=== PATIENT | female | born 1965 | race Caucasian/White ===

== ENCOUNTER 2018-10-30 10:21 | Outpatient (CLI) | payer OTHER ==
--- NOTE | 2018-10-30 11:58 | RAD ---
2 VIEWS CERVICAL SPINE: Date; 10/30/18 HISTORY: Disability exam. COMPARISON: None available. FINDINGS: C1 to the cervicothoracic junction is seen on the lateral view. There is straightening of the normal cervical lordotic curvature. Multilevel osteophytes are seen and there are facet hypertrophic changes also present at multiple levels. There is slight anterolisthesis of C3 on C4 and C7 on T1, likely re lated to the prominent facet degenerative changes at these levels. The vertebral body heights are wit hin normal limits. No fracture is seen. Linear densities seen in the upper lung zones bilaterally, pr obably related to areas of mild scarring. Vascular calcifications seen thoracic aorta. IMPRESSION: 1. Multilevel degenerative changes throughout the cervical spine with slight anterolisthesis of C3 o n C4 and C7 on T1 likely attributable to prominent facet degenerative changes. 2. Straightening of the normal cervical lordotic curvature, probably related to muscle spasm or posi tioning. POS: [facility]
--- NOTE | 2018-10-30 11:59 | RAD ---
RIGHT HIP 2 VIEWS: Date: 10/30/18 PROVIDED CLINICAL HISTORY: Right hip pain. FINDINGS: There is marked concentric right hip joint space loss with prominent periarticular osteophyte formati on. There is no evidence for fracture or other acute osseous abnormality. The degenerative changes in volving the right hip may predispose to femoral-acetabular impingement. No lytic or blastic lesions a re seen. Partially visualized lower lumbar degenerative change. IMPRESSION: Advanced right hip degenerative change. POS: [facility]
== END 2018-10-30 10:22 | disposition home or self-care (01) ==
LOC: BICRAD 10:21
PROVIDERS: ATTEND Internal Medicine
DX: Z02.71 Encounter for disability determination (principal); M16.11 Unilateral primary osteoarthritis, right hip; M47.812 Spondylosis without myelopathy or radiculopathy, cervical region; M43.12 Spondylolisthesis, cervical region; M47.813 Spondylosis without myelopathy or radiculopathy, cervicothoracic region
CPT/HCPCS: 72040

== ENCOUNTER 2018-11-24 16:30 | Emergency (ER) | payer SELFPAY ==
--- NOTE | 2018-11-24 16:57 | RAD ---
FRadiograph right foot 3 views: HISTORY: 53-year-old female with right foot pain FINDINGS: There is diffuse soft tissue edema of the foot, especially along the medial aspect of the first MTP j oint, adjacent to which there is a subtle ill-defined region of slightly increased soft tissue attenu ation. Bony hypertrophy and irregularity of the medial aspect of first metatarsal head. Numerous subc hondral cysts at the first metatarsal head especially medially. Small osteophytes and mild hallux lizzeth bee at first MTP. High-grade DJD at the third DIP. High-grade DJD at second and third TMT's and to a lesser degree first TMT. No acute fracture. IMPRESSION: 1. No evidence of fracture. 2. Diffuse soft tissue edema. 3. High-grade osteoarthrosis at several tarsometatarsal joints and third distal interphalangeal joint . 4. Moderate osteoarthrosis at the first metatarsophalangeal joint. 5. Possibility of gout at the first metatarsophalangeal joint. Clinical correlation recommended.
[2018-11-24] MEDS ORDERED: Ketorolac Tromethamine 30 MG/ML VIAL ONE (17:29)
[2018-11-24 17:44] LABS: #Lymphocytes 1.2 thou/uL (1.20-3.40); #Monocytes 0.5 thou/uL (0.11-0.59); #Neutrophils 7.5 thou/uL (1.40-6.50); %Basophils 0.5 % (0.0-1.0); %Eosinophils 0.3 % (0.0-10.0); %Lymphocytes 12.8 % (21.0-51.0); %Monocytes 5.2 % (0.0-10.0); %Neutrophils 81.2 % (42.0-75.0); Hemoglobin 13.5 g/dL (12.0-16.0); Mean Corpuscular HGB CONC 33.2 g/dL (32.0-36.0); Mean Corpuscular Hemoglobin 29.3 pg (27.0-31.0); Mean Corpuscular Volume 88.4 fL (78.0-98.0); Mean Platelet Volume 9.7 fL (7.4-10.4); Platelet Count 318 thou/uL (130-400); RBC Distribution Width 11.4 % (11.5-14.5); Red Blood Cell (RBC) Count 4.61 mill/uL (4.20-5.40); White Blood Cell (WBC) Count 9.2 thou/uL (4.8-10.8)
[2018-11-24 18:06] LABS: CRP (Inflammatory) 5.42 mg/dL (= or < 0.5); Uric Acid 8.4 mg/dL (2.6-6.0)
[2018-11-24 18:07] LABS: ALT (SGPT) 11 U/L (8-55); AST (SGOT) 12 U/L (5-34); Albumin 4.5 g/dL (3.5-5.0); Alkaline Phosphatase 117 U/L (40-150); Anion Gap 16 mmol/L (10-20); BUN (Urea Nitrogen) 11 mg/dL (9.8-20.1); Bilirubin, Total 0.7 mg/dL (0.2-1.2); Calc. Creatinine Clearance 0 mL/min (70-130); Calcium 11.1 mg/dL (7.8-10.44); Carbon Dioxide 25 mmol/L (22-29); Chloride 104 mmol/L (98-107); Estimated GFR-MDRD 74; Globulin 3.7 g/dL (2.4-3.5); Glucose 117 mg/dL (70-105); Potassium 4.5 mmol/L (3.5-5.1); Protein, Total 8.2 g/dL (6.0-8.3); Sodium 140 mmol/L (136-145)
[2018-11-24] MEDS ORDERED: cefTRIAXone\\ROCEPHIN 1 GM VIAL ONE (18:52)
--- NOTE | 2018-11-24 18:57 | ULT ---
FEXAM: Right lower extremity venous duplex: Deep veins evaluated with color Doppler, spectral analysis, and compression. INDICATIONS: Right lower extremity pain and edema. FINDINGS: Deep veins interrogated include common femoral vein, femoral vein, popliteal vein, and post erior tibial vein. These veins show normal compression and blood flow. No evidence of DVT. IMPRESSION: Negative right lower extremity venous duplex study
== END 2018-11-24 19:57 | disposition home or self-care (01) ==
LOC: ERS 16:30
DX: L03.115 Cellulitis of right lower limb (principal); M10.9 Gout, unspecified
CPT/HCPCS: 36415; 80053; 84550; 85025; 85652; 86140; 87040; 96365; 96375; J0696; J1885

== ENCOUNTER 2018-12-09 15:00 | Observation (INO) | payer SELFPAY ==
[2018-12-09] MEDS ORDERED: Morphine 4 MG/ML VIAL ONE ×2 (15:33→17:46)
[2018-12-09] MEDS ORDERED: Ondansetron PF 4 MG/2 ML Vial ONE (15:33)
[2018-12-09 15:55] LABS: #Lymphocytes 1.3 thou/uL (1.20-3.40); #Monocytes 0.5 thou/uL (0.11-0.59); #Neutrophils 6.6 thou/uL (1.40-6.50); %Basophils 0.4 % (0.0-1.0); %Eosinophils 0.3 % (0.0-10.0); %Monocytes 6.3 % (0.0-10.0); %Neutrophils 77.9 % (42.0-75.0); Mean Corpuscular HGB CONC 33.7 g/dL (32.0-36.0); Mean Corpuscular Hemoglobin 29.9 pg (27.0-31.0); Mean Corpuscular Volume 88.5 fL (78.0-98.0); Mean Platelet Volume 9.3 fL (7.4-10.4); Platelet Count 327 thou/uL (130-400); RBC Distribution Width 11.2 % (11.5-14.5); Red Blood Cell (RBC) Count 4.35 mill/uL (4.20-5.40); White Blood Cell (WBC) Count 8.5 thou/uL (4.8-10.8)
[2018-12-09 16:14] LABS: ALT (SGPT) 10 U/L (8-55); AST (SGOT) 11 U/L (5-34); Albumin 4.1 g/dL (3.5-5.0); Alkaline Phosphatase 119 U/L (40-150); Anion Gap 15 mmol/L (10-20); BUN (Urea Nitrogen) 12 mg/dL (9.8-20.1); Bilirubin, Total 0.4 mg/dL (0.2-1.2); CRP (Inflammatory) 2.72 mg/dL (= or < 0.5); Calc. Creatinine Clearance 0 mL/min (70-130); Calcium 10.6 mg/dL (7.8-10.44); Carbon Dioxide 28 mmol/L (22-29); Chloride 104 mmol/L (98-107); Estimated GFR-MDRD 55; Globulin 3.2 g/dL (2.4-3.5); Glucose 151 mg/dL (70-105); Potassium 4.8 mmol/L (3.5-5.1); Protein, Total 7.3 g/dL (6.0-8.3); Sodium 142 mmol/L (136-145)
[2018-12-09] MEDS ORDERED: Diazepam 5 MG TAB ONE (16:15)
[2018-12-09] MEDS ORDERED: Lidocaine 1% (PF) 30 ML VIAL ONE (16:57)
[2018-12-09] MEDS ORDERED: Lidocaine 2% 10 ML INJ ONE (16:57)
--- NOTE | 2018-12-09 19:00 | RAD ---
Right foot 3 views HISTORY: Right foot pain and inflammation. COMPARISON: 11/24/2018. FINDINGS: Prominent soft tissue swelling about the first metatarsophalangeal joint has progressed sin ce the previous study. Lucency involving the medial aspect of the first metatarsal head has also worsened with loss of overlying cortex. Subtle erosion at the medial base of the proximal phalanx. Shruthi int space narrowing. Degenerative changes throughout the remainder of the foot are again demonstrated. Subtle erosive barrett ges on each side of the second through fourth tarsometatarsal joints are apparent. IMPRESSION: Rapid progression of erosions and lucency involving the first metatarsophalangeal joint w ith worsening of adjacent soft tissue swelling. An aggressive process such as inflammatory arthropathy (gout) is of primary concern. Infection could have this appearance. Correlation with clin ical findings is required.
[2018-12-09] MEDS ORDERED: Senokot S 8.6-50 MG TAB PO PRN (20:45)
[2018-12-09] MEDS ORDERED: cloNIDine 0.1 MG TAB PO PRN (20:45)
[2018-12-09] MEDS ORDERED: Bisacodyl 5 MG TAB PO PRN (20:45)
[2018-12-09] MEDS ORDERED: Ondansetron PF 4 MG/2 ML Vial IVP PRN (20:45)
[2018-12-09] MEDS ORDERED: Nitroglycerin 0.4 MG TAB (25 Tab Bottle) SL PRN (20:45)
[2018-12-09] MEDS ORDERED: Sodium Chloride 0.65% Nasal 44 ML BOT EA NARE PRN (20:45)
[2018-12-09] MEDS ORDERED: hydrALAZINE 20 MG/ML VIAL SLOW IVP PRN (20:45)
[2018-12-09] MEDS ORDERED: Benzonatate 100 MG CAP PO PRN (20:45)
[2018-12-09] MEDS ORDERED: Calcium Carbonate 500 MG ChewTAB PO PRN (20:45)
[2018-12-09] MEDS ORDERED: Acetaminophen 325 MG TAB PO PRN (20:45)
[2018-12-09] MEDS ORDERED: predniSONE 20 MG TAB PO SCH (21:00)
--- NOTE | 2018-12-09 22:06 | HP ---
PRIMARY CARE PHYSICIAN: Kodi Grafton. CHIEF COMPLAINT: Worsening pain, swelling and redness of the right big toe. HISTORY OF PRESENTING ILLNESS: Ms. Lugo is a 53-year-old very pleasant female with past medical history significant for just gout once in the past as well as history of left hip replacement, who presented to the emergency room with above-mentioned complaint. History is mainly obtained by the patient herself and electronic medical records have been reviewed. The patient was first seen in the emergency room 10 days ago with complaints of right foot pain. At that time, she was hemodynamically stable and was discharged from the emergency room. At that time, she was diagnosed with possible gout, but was given antibiotics with possible rule out cellulitis. The patient returns to the emergency room today. She was reportedly also provided treatment for colchicine and indomethacin. The patient returned to the emergency room today when her symptoms did not resolve. She now has worsening of her right toe pain. The swelling is worse and it is extremely red. She has her whole foot swollen now and is not able to put any weight on it or not able to walk. She denies any constitutional symptoms like fever, chills, nausea, vomiting, or weight loss. She has history of gout once in the other big toe of the other foot, but other than that she is otherwise fairly healthy. In the emergency room today, she was once again hemodynamically stable, but still tachycardic with a pulse of 132. She underwent an x-ray of the foot which showed bony erosion and lucency involving the first metatarsophalangeal joints with ages and worsening of the soft tissue swelling in the right first toe. This was not there in the x-ray done of the right foot on 11/24/2018. She was given some pain medications and underwent an arthrocentesis by the ER physician. The fluid has been sent for culture, cell count. We will add crystal ID to the fluid as well. PAST MEDICAL HISTORY: No significant past medical history as per the patient, except for gout once. She says that her left foot was affected at that time. PAST SURGICAL HISTORY: Tubal ligation and left hip replacement. PSYCHIATRIC HISTORY: No anxiety. No depression. SOCIAL HISTORY: She is engaged and just moved into the town with her fiance. No history of drug, tobacco, or alcohol abuse. FAMILY HISTORY: Significant for multiple family members including her mother and aunt with breast cancer and grandmother with possible ovarian cancer. Her mother also had diabetes. No history of coronary artery disease or stroke. ALLERGIES: NO KNOWN MEDICATION ALLERGIES. CURRENT MEDICATIONS: None. REVIEW OF SYSTEMS: A 14-point review of system is done and is negative except for those mentioned in the history and physical. LABORATORY STUDIES: CBC is unremarkable. Neutrophils 77%. ESR 27. Serum chemistry shows CRP is slightly elevated to 2.72, calcium is 10.6, blood sugar 151. X-ray of the foot by my review as per the HPI. PHYSICAL EXAMINATION: VITAL SIGNS: Upon presentation to the emergency room, blood pressure 143/87, pulse of 95, respirations 19, temperature 99, saturation 99% on room air. GENERAL: No acute distress. Awake, alert, and oriented x3. HEENT: Mucous membrane is moist and pink. No oropharyngeal exudate or erythema. Head is normocephalic and atraumatic. Pupils are equal and reactive to light and accommodation. Extraocular movement intact. NECK: Supple without any lymphadenopathy, JVD, or bruit. CHEST: Clear to auscultation without any wheezing, rales, or rhonchi. HEART: Rate and rhythm are regular without any murmurs, rubs, or gallops. ABDOMEN: Soft, nontender, nondistended. Positive bowel sounds. EXTREMITIES: Examination show extensive erythema, swelling, and warmth of the right first metatarsophalangeal joint involving the dorsum as well as plantar surface. Her whole foot is swollen. There is no streaking. Left foot examination is within normal limits. PSYCHIATRIC: Normal affect. IMPRESSION AND PLAN: 1. Acute gout flare up. The patient will be treated with colchicine and naproxen for now. Avoid steroids as at this time, we cannot rule out infection in the joint either. Orthopedics will be consulted in the morning and we will also obtain a right foot MRI. We will send for uric acid in the blood and crystal analysis for the synovial fluid stat by the ER physician. Pain control will be provided. At this time, no antibiotics were given in the emergency room and we will try not to treat her with antibiotics. If there is no response, further gout treatment antibiotics can be provided empirically until infection is ruled out. At this time, the possibility of a septic arthritis or osteomyelitis are rather low. Skin findings are also consistent with acute gout flare up rather than cellulitis. 2. Hyperglycemia. She has family history of diabetes mellitus. We will check hemoglobin A1c. 3. Family history of multiple first-degree relatives with breast cancer. The patient will undergo mammogram while she is here for screening purposes and will follow up at either [facility] or [facility] for followup with genetic testing and mammograms. 1. Deep venous thrombosis and gastrointestinal prophylaxis. DISPOSITION: Ms. Lugo is currently being admitted on medical floor for acute gout flare up with rule out septic arthritis and osteomyelitis. She is on observation status for now. Further management will depend upon her clinical course. Job ID: [id number]
[2018-12-09 23:25] VITALS: BMI 32.3
[2018-12-09] MEDS: Colchicine 0.6 MG TAB PO SCH (23:34)
[2018-12-09] MEDS: Naproxen 500 MG TAB PO SCH (23:34)
[2018-12-09] MEDS: Sodium Chloride 0.9% 1,000 ML IV SCH (23:35)
[2018-12-10] MEDS: HYDROcodone/Acetaminophen 5/325 mg Tablet PO PRN ×2 (01:40→12:08)
[2018-12-10 06:47] LABS: Anion Gap 11 mmol/L (10-20); BUN (Urea Nitrogen) 11 mg/dL (9.8-20.1); Calc. Creatinine Clearance 101 mL/min (70-130); Calcium 10.2 mg/dL (7.8-10.44); Carbon Dioxide 26 mmol/L (22-29); Chloride 105 mmol/L (98-107); Estimated GFR-MDRD 71; Glucose 150 mg/dL (70-105); Potassium 4.9 mmol/L (3.5-5.1); Sodium 137 mmol/L (136-145)
[2018-12-10 07:13] LABS: Hemoglobin A1c 5.1 % (4.0-6.0)
[2018-12-10] MEDS ORDERED: predniSONE 20 MG TAB PO SCH (08:00)
[2018-12-10 08:51] LABS: #Lymphocytes 0.8 thou/uL (1.20-3.40); #Monocytes 0.2 thou/uL (0.11-0.59); #Neutrophils 6.1 thou/uL (1.40-6.50); %Basophils 0.2 % (0.0-1.0); %Eosinophils 0.2 % (0.0-10.0); %Lymphocytes 10.6 % (21.0-51.0); %Neutrophils 85.9 % (42.0-75.0); Hemoglobin 11.6 g/dL (12.0-16.0); Mean Corpuscular HGB CONC 33.6 g/dL (32.0-36.0); Mean Corpuscular Hemoglobin 29.9 pg (27.0-31.0); Mean Corpuscular Volume 88.9 fL (78.0-98.0); Mean Platelet Volume 10.1 fL (7.4-10.4); Platelet Count 279 thou/uL (130-400); RBC Distribution Width 11.3 % (11.5-14.5); Red Blood Cell (RBC) Count 3.89 mill/uL (4.20-5.40); White Blood Cell (WBC) Count 7.1 thou/uL (4.8-10.8)
[2018-12-10] MEDS: Colchicine 0.6 MG TAB PO SCH ×2 (08:59→15:45)
[2018-12-10] MEDS ORDERED: Enoxaparin Sodium 40 MG/0.4 ML SYRINGE SC SCH (09:00)
[2018-12-10] MEDS: Naproxen 500 MG TAB PO SCH ×2 (09:35→15:44)
[2018-12-10] MEDS: Sodium Chloride 0.9% 1,000 ML IV SCH (11:00)
--- NOTE | 2018-12-10 13:11 | DIS ---
DATE OF ADMISSION: 12/09/2018 DATE OF DISCHARGE: 12/10/2018 CONDITION AT THE TIME OF DISCHARGE: Stable and improved. DISCHARGE DISPOSITION: Home. DISCHARGE DIAGNOSIS: Acute gout of the right first metacarpophalangeal joint. SECONDARY DISCHARGE DIAGNOSES: 1. History of gout. 2. Family history of breast cancer. No ovarian cancer. 3. Family history of diabetes mellitus. DISCHARGE MEDICATIONS: 1. Naproxen 500 mg p.o. b.i.d. for 7 days. 2. Colchicine 0.6 mg p.o. b.i.d. for 7 days. IN-HOUSE CONSULTATION: Orthopedics, Dr. Huerta. PROCEDURES DONE IN HOSPITAL: X-ray of the foot, which shows progression of erosion and lucency involving the first metacarpophalangeal joint with worsening of edges and soft tissue swelling suggestive of inflammatory process. Infection is ruled out. Arthrocentesis in the emergency room of first metacarpophalangeal joint of right leg. PENDING LABS AT THIS TIME: Blood cultures and cell count and cultures for the synovial fluid. HISTORY OF PRESENTING ILLNESS: Ms. Lugo is a 53-year-old female with past medical history of gout, who presented to the emergency room with worsening complains of right foot redness and erythema and pain. Her whole foot was swollen. She was recently seen in the emergency room and was diagnosed with gout and was prescribed colchicine and NSAIDs and antibiotics. She could only afford the antibiotics, which did not bring her any improvement and she came back to the ER. In the ER, she was found to have worsening of her swelling, redness and erythema of the right foot, and she was admitted with a presumptive diagnosis of acute gout and rule out infection. Orthopedics was consulted. Her CRP and ESR were minimally elevated or within normal limit. Please see admission history and physical dictated by myself yesterday. HOSPITAL COURSE: The patient was started on colchicine and naproxen. Steroids were avoided as we were ruling out infection. This morning, her symptoms are much improved and she is able to walk on the foot. Her uric acid levels were checked and she was found to have elevated levels at 8.9. She was seen by Orthopedics and Dr. Huerta, also thinks that this is just acute gout. No further management was indicated except for medical management. The patient was seen and examined prior to discharge and is feeling very well. PHYSICAL EXAMINATION: VITAL SIGNS: Stable. Blood pressure 136/81. GENERAL: No acute distress. Awake, alert, and oriented x3. CHEST: Clear to auscultation bilaterally. Rate and rhythm is regular. Her right foot swelling, erythema and warmth have significantly improved. There are no open sores. She will follow up at [facility] or [facility] for followup and establishment of care. This patient has significant history of family history and at least three first-degree relatives of breast cancer and ovarian cancer. She has never had a mammogram in her life because of insurance issues. She is very high risk of cancer and would need further testing including genetic testing. She is referred to [facility] and is given a lab slip for mammogram. It was ordered for the hospital, but it could not be done because of the weekend status. [facility] has been consulted to assist with medications including colchicine and naproxen. Once this has been settled, she will be discharged. All questions were answered and discharge plan was discussed with the patient, who verbalized understanding. Job ID: [id number]
--- NOTE | 2018-12-10 15:42 | CON ---
DATE OF CONSULTATION: 12/10/2018 REQUESTING PHYSICIAN: Dr. Royal. CONSULTING PHYSICIAN: Dr. Mitchell Huerta MD. REASON FOR CONSULTATION: Right great toe pain. BRIEF CLINICAL HISTORY: Keely is a 53-year-old white female, who has had about 2 weeks of right great toe pain which started insidiously. No history of trauma to preceded the pain. It has gotten progressively worse and she was seen in the emergency room with significant erythema, progressive pain and discomfort in the toe. She had been admitted by the medicine service and treated presumptively for gout. She has had a positive response to this with diminishment of pain and redness. Our service was consulted for evaluation of the TP joint with swelling and to evaluate for possible septic joint. PAST MEDICAL HISTORY: Significant for gout. RADIOGRAPHS: Have been obtained, which demonstrate small semilinear rat bite signs at the distal aspect of the great metatarsal consistent with gout. PHYSICAL EXAMINATION: GENERAL: Well-nourished, well-groomed female, appearing stated age, in no apparent distress, discomfort. She is appropriate and conversant with examiner. MUSCULOSKELETAL: Visual inspection of the right great toe demonstrates it to have circumferential swelling at the MTP joint, little bit of redness which has been demarcated but has actually receded from the demarcation line. She has adequate digital excursion, but it is uncomfortable but tolerable currently. She does have hallux valgus. This is noted bilaterally. IMAGING STUDIES: 1. Three views right foot demonstrate a rat bite lesion of the periarticular surface at the distal aspect of the metatarsal, also some chronic distal joint changes. 2. Superimposed acute gouty flare on chronic gouty arthritis, right great toe. 3. Hallux valgus. PLAN: Continue current care. No further orthopedic recommendations at this point, treat medically, control hydration status, patient was counseled on this. Re-consult as needed. Job ID: [id number]
[2018-12-10 15:48] VITALS: BP 137/82; TEMP 98.8
== END 2018-12-10 16:08 | disposition home or self-care (01) ==
LOC: ERS 15:00 → T4-B 19:35
PROVIDERS: ADMIT Internal Medicine; ATTEND Internal Medicine
DX: M10.9 Gout, unspecified (principal); M1A.9XX0 Chronic gout, unspecified, without tophus (tophi); Z96.642 Presence of left artificial hip joint
CPT/HCPCS: 20600; 36415; 80048; 80053; 83036; 84550; 85025; 85652; 86140; 87040; 96361; 96372; 96374; 96375; 96376; G0378; J1650; J2001; J2270; J2405; J7512

== ENCOUNTER 2019-01-08 07:36 | Emergency (ER) | payer SELFPAY ==
[2019-01-08] MEDS ORDERED: Morphine 4 MG/ML VIAL ONE ×2 (08:08→13:18)
[2019-01-08] MEDS ORDERED: Ondansetron PF 4 MG/2 ML Vial ONE (08:08)
[2019-01-08 08:16] LABS: #Monocytes 0.3 thou/uL (0.11-0.59); #Neutrophils 7.5 thou/uL (1.40-6.50); %Basophils 0.4 % (0.0-1.0); %Eosinophils 0.2 % (0.0-10.0); %Lymphocytes 11.7 % (21.0-51.0); %Monocytes 3.3 % (0.0-10.0); %Neutrophils 84.5 % (42.0-75.0); Hemoglobin 13.2 g/dL (12.0-16.0); Mean Corpuscular HGB CONC 34.4 g/dL (32.0-36.0); Mean Corpuscular Volume 87.3 fL (78.0-98.0); Mean Platelet Volume 9.6 fL (7.4-10.4); Platelet Count 264 thou/uL (130-400); RBC Distribution Width 11.8 % (11.5-14.5); Red Blood Cell (RBC) Count 4.39 mill/uL (4.20-5.40); White Blood Cell (WBC) Count 8.9 thou/uL (4.8-10.8)
[2019-01-08 08:24] LABS: BHCG - Serum Negative (NEGATIVE); Pregs Control Background? CLEAR/WHITE (CLR/WHITE); Pregs Control Bar Appear? YES (CONTROL BAR)
[2019-01-08 08:38] LABS: ALT (SGPT) 10 U/L (8-55); AST (SGOT) 12 U/L (5-34); Albumin 4.4 g/dL (3.5-5.0); Alkaline Phosphatase 112 U/L (40-150); Anion Gap 16 mmol/L (10-20); BUN (Urea Nitrogen) 9 mg/dL (9.8-20.1); Bilirubin, Total 0.5 mg/dL (0.2-1.2); CK (CPK) 36 U/L (29-168); Calc. Creatinine Clearance 0 mL/min (70-130); Carbon Dioxide 22 mmol/L (22-29); Chloride 106 mmol/L (98-107); Estimated GFR-MDRD 57; Globulin 3.1 g/dL (2.4-3.5); Glucose 166 mg/dL (70-105); Lipase 24 U/L (8-78); Protein, Total 7.5 g/dL (6.0-8.3); Sodium 140 mmol/L (136-145)
[2019-01-08] MEDS ORDERED: Ketorolac Tromethamine 30 MG/ML VIAL ONE (08:55)
--- NOTE | 2019-01-08 08:59 | CT ---
CT STONE PROTOCOL: HISTORY: Abdominal pain, right lower quadrant pain DISCLAIMER: Absence of oral and IV contrast reduces the sensitivity of the exam particularly for the evaluation of solid organs and bowel. FINDINGS: The lung bases are unremarkable. No free air or free fluid is seen in the abdomen or pelvis. No calci fied gallstones are identified. A calcified appendicolith is seen in an otherwise normal-appearing appendix. Bilateral tiny renal calculi are present. There is right-sided hydroureteronephrosis secondary to a 3 mm calculus at the right UVJ. No left-sided hydroureteronephrosis is seen. Uterus is present. There is a 1 cm left ovarian cyst. Vascular calcifications are present without pierre dence of aneurysmal dilatation of the abdominal aorta. Degenerative changes are present in the spine. There are postoperative changes of left hip arthroplasty. IMPRESSION: 1. A 3 mm right UVJ calculus with associated hydroureteronephrosis. 2. Nonobstructing bilateral renal calculi. 3. A 1 cm left ovarian cyst. 4. Calcified appendicolith in a normal-appearing appendix.
[2019-01-08 12:40] LABS: Bilirubin Negative (Negative); Blood, Urine Moderate (Negative); Clarity CLEAR (Clear); Glucose, Urine (Dipstick) Negative (Negative); Leukocyte Small (Negative); Nitrite Negative (Negative); Protein, Urine (Dipstick) Negative (Neg-Trace); Specific Gravity, Urine 1.012 (1.002-1.036); Urobilinogen 0.2 mg/dL (0.2-1.0); pH, Urine 6.5 (5.0-9.0)
[2019-01-08 12:42] LABS: Bacteria/HPF Rare-Few HPF (None Seen); Hyaline Casts/LPF 4-6 HYALINE CAST LPF (0-3 Hyaline); Pathc Cast-AUWi Flag 1.08 (0-2.49); RBC/HPF 0-3 HPF (0-3); Squamous Epithelial 0-3 HPF (0-3)
[2019-01-08 12:49] LABS: Lactic Acid 1.2 mmol/L (0.5-2.2)
== END 2019-01-08 13:27 | disposition home or self-care (01) ==
LOC: ERS 07:36
DX: N13.2 Hydronephrosis with renal and ureteral calculous obstruction (principal)
CPT/HCPCS: 36415; 74176; 80053; 81003; 81015; 82550; 83605; 83690; 84703; 85025; 87086; 96361; 96374; 96375; 96376; J1885; J2270; J2405